=== PATIENT | male | born 1965 | race Caucasian/White ===

== ENCOUNTER 2021-03-01 13:38 | Inpatient (IN) ==
--- NOTE | 2021-03-01 13:56 | Emergency Department Note ---
Lower Extremity Injury HPI <Clarence Kwan PA-C - Last Filed: 03/01/21 18:31> General Chief Complaint: Extremity Injury, Lower Stated Complaint: dislocated 5th toe Time Seen by Provider: 03/01/21 13:40 Source: other Mode of arrival: wheelchair Limitations: language barrier and physical limitation History of Present Illness HPI Narrative: Narrative: Shahid is a 55-year-old male who comes from [facility] for evaluation of a possible left fifth toe dislocation. 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 Report is that he might have kicked a door or wall but there is no timeframe for when this injury could have occurred. Assistance from [facility] are not able to give much information regarding this patient but on examination it does appear that the patient is suffering from chronic wounds of the feet bilaterally that include grade 2 pressure ulcers as well as significant skin breakdown and possible localized infection of the anterior digital webspace between toes 4 and 5 the left foot. Shahid is not able to provide history on his own but does not toxically ill in his appearance and is afebrile in triage. The patient does have intact distal pulses at +2 over the dorsalis pedis and posterior tibialis of his left lower extremity. Right lower extremity is similar in appearance. There is a noted deformity of the left fifth toe so we will perform x-rays of this to evaluate for acute fra ctures or dislocations. Related Data Home Medications Medication Instructions Recorded Confirmed acetaminophen 500 mg PO Q6H PRN 03/01/21 03/01/21 amantadine HCl 100 mg PO TID 03/01/21 03/01/21 benzocaine 1 applic MUCOUS MEMBRANE QID PRN 03/01/21 03/01/21 bisacodyl 10 mg NC QDAY PRN 03/01/21 03/01/21 cholecalciferol (vitamin D3) 125 mcg PO WEEKLY 03/01/21 03/01/21 deutetrabenazine 24 mg PO BID 03/01/21 03/01/21 folic acid 1 mg PO QAM 03/01/21 03/01/21 gabapentin 300 mg PO TID 03/01/21 03/01/21 loratadine [Allergy Relief 10 mg PO QAM 03/01/21 03/01/21 (loratadine)] magnesium hydroxide [Milk of 15 ml PO BID 03/01/21 03/01/21 Magnesia] magnesium hydroxide [Milk of 30 ml PO Q72H PRN 03/01/21 03/01/21 Magnesia] melatonin 3 mg PO HS PRN 03/01/21 03/01/21 meloxicam 15 mg PO QAM 03/01/21 03/01/21 methocarbamol 750 mg PO TID 03/01/21 03/01/21 [id number] K 1 tab PO QAM 03/01/21 03/01/21 [Adults Multivitamin] oxycodone 5 mg PO QPM 03/01/21 03/01/21 quetiapine 25 mg PO BID 03/01/21 03/01/21 sertraline 50 mg PO QDAY 03/01/21 03/01/21 sodium phosphates [Fleet Enema] 118 ml NC DAILY PRN 03/01/21 03/01/21 thiamine HCl (vitamin B1) 100 mg PO QAM 03/01/21 03/01/21 Allergies Allergy/AdvReac Type Severity Reaction Status Date / Time No Known Drug Allergies Allergy Verified 03/01/21 13:42 Review of Systems <Clarence Kwan PA-C - Last Filed: 03/01/21 18:31> ROS ROS Narrative: Narrative: All systems ED: reviewed and negative except as stated. PFSH <Clarence Kwan PA-C - Last Filed: 03/01/21 18:31> Narrative Patient History Narrative: Narrative: Medical/Surgical/Family History All Active Problems (Updated 03/01/21 @ 19:20 by Dario Stark MD) Macrocytic anemia (Acute) Giovanna's chorea (Acute) Open fracture dislocation of interphalangeal joint of toe of left foot (Acute) Acute hypernatremia (Acute) Social History Smoking Status: Former smoker Exam <EDWARD Witt Last Filed: 03/01/21 18:31> Narrative Narrative: Narrative: General Limitations: language barrier and physical limitation General appearance: Present alert and anxious Head Head: Present atraumatic, normocephalic and normal inspection Eye Eye: Present normal appearance, PERRL and EOMI ENT ENT: Present normal exam, normal oropharynx, mucous membranes moist and mucous membranes dry Neck Neck: Present normal inspection, full ROM and trachea midline Chest Chest: Present normal inspection and symmetric chest wall rise Respiratory Respiratory: Present normal lung sounds bilaterally Cardiovascular Cardiovascular: Present regular rate and normal rhythm Extremities Extremities: Present full ROM, normal capillary refill and other Expanded Lower Extremity Foot/toe: Present other (Patient has good distal pusles at +2 bilaterally over the DP and PT. Noted areas of skin break down and grade 2 ulcerations over the base of the great left toe and interdigital webspace of the 4th and 5th toes.) Neurovascular/Tendon: Present normal capillary refill Neurological Neurological: Present alert Skin Skin: Present warm (WNL), dry and normal color Course <Clarence Kwan PA-C - Last Filed: 03/01/21 18:31> Course Course Narrative: A plain film that was dictated earlier today did report dislocation of the fifth PIP. The patient was kicking things in triage so we will order a new set of plain films to further evaluate the patient's left foot for any possible fractures. 1406: Review of the patients plain film x-rays does reveal a lateral dislocation of the 5th distal phalange. This is a possible fracture line at the proximal phalange so we will await a formal dictation from radiology before we reduce the dislocation. 1422: The patient does see Dr. Minor for wound care follow up. 1439: A digital block was performed on the patient's left fifth toe and there was an attempt to reduce the dislocation however upon further inspection I did notice that the patient's area of skin breakdown is actually an open wound with visibility into the joint and flexor tendon. I now have concern for osteomyelitis and necrosis of the toe. A post reduction film was taken but the distal phalange is still displaced and there is an obvious transverse fracture of the patients proximal phalange that was noted by the radiologist in the initial plain film. Patient does not have any sensation to the area and did not respond in pain when we were examining the toe. I did talk to Dr. Lopez about this patient. We will consult podiatry as this is likely a toe that will have to be evaluated for amputation. IV placed. Labs and cultures have been drawn. 1 gm Ancef ordered. I spoke with software manager Dr. Hickey regarding this patient. He is going to come to the floor to see him to evaluate his open fracture dislocation. 1459: Plan will be to admit to the hospitalist with podiatry consulting as there is a plan to amputate the patient's left fifth toe. Patient was reported by staff climate scientist as being hypoxic so he was placed on 2 L of oxygen by nasal cannula and readjusted in the bed and he is now saturating at 94% on reexamination. A portable chest x-ray has been ordered for further evaluation. The patient does have hydrocodone on his updated medical list but he has not had a dose today. His hypoxia is unlikely to be opiod induced and the patient does not have a documented history of sleep apnea but he does snore in the room when he's sleeping. Vital Signs Vital signs: Vital Signs Temperature 97.7 F 03/01/21 13:39 Pulse Rate 80 03/01/21 13:39 Respiratory Rate 16 03/01/21 13:39 Blood Pressure 130/71 03/01/21 13:39 Pulse Oximetry (%) 96 03/01/21 13:39 Temperature 98.5 F 03/02/21 03:19 Pulse Rate 83 03/02/21 03:19 Respiratory Rate 12 03/02/21 03:19 Blood Pressure 127/73 03/02/21 03:19 Pulse Oximetry (%) 95 03/02/21 03:19 <Jose Manuel Lopez MD - Last Filed: 03/02/21 07:14> Vital Signs Vital signs: Vital Signs Temperature 97.7 F 03/01/21 13:39 Pulse Rate 80 03/01/21 13:39 Respiratory Rate 16 03/01/21 13:39 Blood Pressure 130/71 03/01/21 13:39 Pulse Oximetry (%) 96 03/01/21 13:39 Temperature 98.5 F 03/02/21 03:19 Pulse Rate 83 03/02/21 03:19 Respiratory Rate 12 03/02/21 03:19 Blood Pressure 127/73 03/02/21 03:19 Pulse Oximetry (%) 95 03/02/21 03:19 MDM <Clarence Kwan PA-C - Last Filed: 03/01/21 18:31> MDM Narrative Medical decision making narrative: Narrative: 55-year-old male with history of Giovanna's rachael and evidence of chronic wounds of the feet bilaterally presented to the emergency department with concern for left fifth toe dislocation. On further examination the patient has a open fracture of the fifth proximal phalange and dislocation of the fifth distal phalange. Patient is afebrile and is not flagging for sepsis. Patient does have mild elevated white blood cell count of 13.9 thousand without left shift. Patient also has hypernatremia with sodium of 150. IV fluid was started to correct this. There was an attempt at reducing the patient's fracture and dislocation with minimal improvement. Dr. Hickey with podiatry was consulted who saw him on the floor. Patient became hypoxic with oxygen saturations dipping into the 70s but then ret urned to normal baseline of mid 90 he was placed on 2 L by nasal cannula. Chest x-ray was negative for acute disease according to the radiologist. Given that the patient does have a history of Giovanna's rachael and a newly discovered open fracture dislocation of his left fifth toe we will discuss hospitalization with podiatry consulting. 1826: I spoke with the hospitalist regarding this patient who is going to see him on the floor of the ER for admission due to hyponatremia and open fracture dislocation of the left fifth toe. Lactate and procalcitonin have been ordered to the patient's work-up as well as a wound culture with Gram stain. Patient was discussed with Dr. Lopez. Assessment: Open fracture dislocation of the left fifth phalange. Hyponatremia. Treatment: In the emergency department the patient was given 1 L of normal saline for elevated sodium level and a software manager consult due to his open fracture dislocation. 1 gm Ancef was also given for prophylaxis against infe ction prior to blood cultures being drawn. Hospital admission. Lab Data Result diagrams: 03/01/21 14:49 03/01/21 14:49 Labs: Lab Results 03/01/21 03/01/21 03/01/21 Range/Units 14:49 14:49 14:49 WBC 13.9 H (4.5-11.0) K/mcL RBC 4.08 L (4.50-5.90) M/mcL Hgb 12.5 L (13.5-16.5) g/dL Hct 41.2 (41.0-55.0) % MCV 101.0 H (80.0-100.0) fL MCH 30.6 (26.0-34.0) pg MCHC 30.3 L (31.0-36.0) g/dL RDW 14.0 (11.5-14.5) % Plt Count 368 (140-440) K/mcL MPV 11.0 H (7.4-10.4) fL Neut % (Auto) 77.2 (38.0-78.0) % Lymph % (Auto) 11.1 L (15.0-49.0) % [place] % (Auto) 8.1 (1.0-12.0) % Eos % (Auto) 3.0 (0.0-7.0) % Baso % (Auto) 0.6 (0.0-2.0) % Lymph # (Auto) 1.54 (1.50-4.80) K/mcL [place] # (Auto) 1.12 H (0.10-0.90) K/mcL Eos # (Auto) 0.42 (0.00-0.70) K/mcL Baso # (Auto) 0.09 (0.00-0.20) K/mcL Absolute Neutrophils 10.73 H (1.80-8.00) K/mcL VBG Lactic Acid (0.5-2.0) mmol/L Sodium 150 H (133-145) mmol/L Potassium 3.7 (3.3-5.1) mmol/L Chloride 113 H (96-108) mmol/L Carbon Dioxide 22 (22-30) mmol/L Anion Gap 15.0 (8.0-16.0) BUN 22 H (6-20) mg/dL Creatinine 0.9 (0.7-1.2) mg/dL GFR Calculation 95 Glucose 83 (70-105) mg/dL Calcium 9.7 (8.6-10.4) mg/dL Total Bilirubin 0.6 (0.1-1.0) mg/dL AST 26 (<40) U/L ALT 19 (<40) U/L Alkaline Phosphatase 97 (39-117) U/L Total Protein 7.8 (5.9-8.4) gm/dL Albumin 3.9 (3.2-5.2) gm/dL Globulin 3.9 H (2.2-3.7) gm/dL Albumin/Globulin Ratio 1.0 (1.0-2.3) Procalcitonin 0.10 H (<0.10) ng/mL 03/01/21 Range/Units 14:49 WBC (4.5-11.0) K/mcL RBC (4.50-5.90) M/mcL Hgb (13.5-16.5) g/dL Hct (41.0-55.0) % MCV (80.0-100.0) fL MCH (26.0-34.0) pg MCHC (31.0-36.0) g/dL RDW (11.5-14.5) % Plt Count (140-440) K/mcL MPV (7.4-10.4) fL Neut % (Auto) (38.0-78.0) % Lymph % (Auto) (15.0-49.0) % [place] % (Auto) (1.0-12.0) % Eos % (Auto) (0.0-7.0) % Baso % (Auto) (0.0-2.0) % Lymph # (Auto) (1.50-4.80) K/mcL [place] # (Auto) (0.10-0.90) K/mcL Eos # (Auto) (0.00-0.70) K/mcL Baso # (Auto) (0.00-0.20) K/mcL Absolute Neutrophils (1.80-8.00) K/mcL VBG Lactic Acid 0.9 (0.5-2.0) mmol/L Sodium (133-145) mmol/L Potassium (3.3-5.1) mmol/L Chloride (96-108) mmol/L Carbon Dioxide (22-30) mmol/L Anion Gap (8.0-16.0) BUN (6-20) mg/dL Creatinine (0.7-1.2) mg/dL GFR Calculation Glucose (70-105) mg/dL Calcium (8.6-10.4) mg/dL Total Bilirubin (0.1-1.0) mg/dL AST (<40) U/L ALT (<40) U/L Alkaline Phosphatase (39-117) U/L Total Protein (5.9-8.4) gm/dL Albumin (3.2-5.2) gm/dL Globulin (2.2-3.7) gm/dL Albumin/Globulin Ratio (1.0-2.3) Procalcitonin (<0.10) ng/mL ED POC Tests ED POC Tests: ELIZABETH - SARS Antigen Negative <Jose Manuel Lopez MD - Last Filed: 03/02/21 07:14> [facility] Narrative Medical decision making narrative: Patient seen and evaluated by me. Is a compound fracture dislocation of the fifth toe on the right side this is an open wound age unknown. Patient's Estill's chorea caused him to have spastic movements where he supposedly kicked his toe against a counter. Patient sodium is 150. Patient was evaluated by podiatry for the compound open fracture of his fifth toe and will be admitted to internal medicine to address his hypernatremia. I reviewed right medical record and agree with assessment and plan. Medical Records Medical records reviewed: Yes I reviewed the patient's medical records. Lab Data Lab results reviewed: Yes I reviewed the patient's lab results. Labs: Lab Results 03/01/21 03/01/21 03/01/21 Range/Units 14:49 14:49 14:49 WBC 13.9 H (4.5-11.0) K/mcL RBC 4.08 L (4.50-5.90) M/mcL Hgb 12.5 L (13.5-16.5) g/dL Hct 41.2 (41.0-55.0) % MCV 101.0 H (80.0-100.0) fL MCH 30.6 (26.0-34.0) pg MCHC 30.3 L (31.0-36.0) g/dL RDW 14.0 (11.5-14.5) % Plt Count 368 (140-440) K/mcL MPV 11.0 H (7.4-10.4) fL Neut % (Auto) 77.2 (38.0-78.0) % Lymph % (Auto) 11.1 L (15.0-49.0) % [place] % (Auto) 8.1 (1.0-12.0) % Eos % (Auto) 3.0 (0.0-7.0) % Baso % (Auto) 0.6 (0.0-2.0) % Lymph # (Auto) 1.54 (1.50-4.80) K/mcL [place] # (Auto) 1.12 H (0.10-0.90) K/mcL Eos # (Auto) 0.42 (0.00-0.70) K/mcL Baso # (Auto) 0.09 (0.00-0.20) K/mcL Absolute Neutrophils 10.73 H (1.80-8.00) K/mcL VBG Lactic Acid (0.5-2.0) mmol/L Sodium 150 H (133-145) mmol/L Potassium 3.7 (3.3-5.1) mmol/L Chloride 113 H (96-108) mmol/L Carbon Dioxide 22 (22-30) mmol/L Anion Gap 15.0 (8.0-16.0) BUN 22 H (6-20) mg/dL Creatinine 0.9 (0.7-1.2) mg/dL GFR Calculation 95 Glucose 83 (70-105) mg/dL Calcium 9.7 (8.6-10.4) mg/dL Total Bilirubin 0.6 (0.1-1.0) mg/dL AST 26 (<40) U/L ALT 19 (<40) U/L Alkaline Phosphatase 97 (39-117) U/L Total Protein 7.8 (5.9-8.4) gm/dL Albumin 3.9 (3.2-5.2) gm/dL Globulin 3.9 H (2.2-3.7) gm/dL Albumin/Globulin Ratio 1.0 (1.0-2.3) Procalcitonin 0.10 H (<0.10) ng/mL 03/01/21 Range/Units 14:49 WBC (4.5-11.0) K/mcL RBC (4.50-5.90) M/mcL Hgb (13.5-16.5) g/dL Hct (41.0-55.0) % MCV (80.0-100.0) fL MCH (26.0-34.0) pg MCHC (31.0-36.0) g/dL RDW (11.5-14.5) % Plt Count (140-440) K/mcL MPV (7.4-10.4) fL Neut % (Auto) (38.0-78.0) % Lymph % (Auto) (15.0-49.0) % [place] % (Auto) (1.0-12.0) % Eos % (Auto) (0.0-7.0) % Baso % (Auto) (0.0-2.0) % Lymph # (Auto) (1.50-4.80) K/mcL [place] # (Auto) (0.10-0.90) K/mcL Eos # (Auto) (0.00-0.70) K/mcL Baso # (Auto) (0.00-0.20) K/mcL Absolute Neutrophils (1.80-8.00) K/mcL VBG Lactic Acid 0.9 (0.5-2.0) mmol/L Sodium (133-145) mmol/L Potassium (3.3-5.1) mmol/L Chloride (96-108) mmol/L Carbon Dioxide (22-30) mmol/L Anion Gap (8.0-16.0) BUN (6-20) mg/dL Creatinine (0.7-1.2) mg/dL GFR Calculation Glucose (70-105) mg/dL Calcium (8.6-10.4) mg/dL Total Bilirubin (0.1-1.0) mg/dL AST (<40) U/L ALT (<40) U/L Alkaline Phosphatase (39-117) U/L Total Protein (5.9-8.4) gm/dL Albumin (3.2-5.2) gm/dL Globulin (2.2-3.7) gm/dL Albumin/Globulin Ratio (1.0-2.3) Procalcitonin (<0.10) ng/mL ED POC Tests ED POC Tests: ELIZABETH - SARS Antigen Negative Pulse Oximetry Data Pulse Ox %: 95 Interpretation: Percent on room air within normal limits for this patient Discharge Plan Patient/Caregiver Discharge Instructions Pt seen by LEVER OPERATOR/PA only: Yes Clinical Impression: Acute hypernatremia Open fracture dislocation of interphalangeal joint of toe of left foot Qualifiers: Encounter type: initial encounter Qualified Code(s): S92.912B - Unspecified fracture of left toe(s), initial encounter for open fracture Activity: non-weight bearing Patient Disposition: Xfer As Inpt ([facility]) Condition: Good Discharge Date/Time: 03/01/21 20:19
--- NOTE | 2021-03-01 14:29 | XRay Report ---
HISTORY: Dislocated left fifth toe FINDINGS: There is a nondisplaced transverse fracture at the base of the shaft of the proximal phalanx in the fifth toe. At the PIP joint the distal end of the fifth toe is dislocated in a lateral direction. There is proximal retraction of the distal end of the toe. 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 Overlying soft tissues are swollen. The metatarsal phalangeal joint space is normal. The remainder of the foot is normal with no other fracture or bone injury. There is a small accessory ossicle seen lateral view along the proximal superior border of the navicular. IMPRESSION: Fracture proximal phalanx of the fifth toe Dislocated PIP joint of the fifth toe Interpreted and Authenticated by: Vishal Bearden 03/01/21
[2021-03-01] MEDS ORDERED: ceFAZolin 1 GM VIAL IV ONE (14:37)
--- NOTE | 2021-03-01 14:40 | XRay Report ---
HISTORY: Postreduction of dislocated PIP joint in the fifth toe FINDINGS: There is still lateral dislocation at the PIP joint. The proximal retraction of the middle phalanx relative to the proximal phalanx has improved. The transverse fracture the base of the proximal phalanx remains normally aligned. IMPRESSION: Incomplete reduction of the dislocated PIP joint Interpreted and Authenticated by: Vishal Bearden 03/01/21
--- NOTE | 2021-03-01 15:09 | Emergency Department Note ---
Lower Extremity Injury HPI General Chief Complaint: Extremity Injury, Lower Stated Complaint: dislocated 5th toe Time Seen by Provider: 03/01/21 13:40 Source: other Mode of arrival: wheelchair Limitations: language barrier and physical limitation History of Present Illness HPI Narrative: Narrative: Related Data Home Medications Medication Instructions Recorded Confirmed acetaminophen 500 mg PO Q6H PRN 03/01/21 03/01/21 Allergies Allergy/AdvReac Type Severity Reaction Status Date / Time No Known Drug Allergies Allergy Verified 03/01/21 13:42 Review of Systems ROS ROS Narrative: Narrative: PFSH Narrative Patient History Narrative: Narrative: Social History Smoking Status: Former smoker Exam Narrative Narrative: Narrative: General Limitations: language barrier and physical limitation Course Vital Signs Vital signs: Vital Signs Temperature 97.7 F 03/01/21 13:39 Pulse Rate 80 03/01/21 13:39 Respiratory Rate 16 03/01/21 13:39 Blood Pressure 130/71 03/01/21 13:39 Pulse Oximetry (%) 96 03/01/21 13:39 Temperature 97.7 F 03/01/21 13:39 Pulse Rate 89 03/01/21 14:52 Respiratory Rate 16 03/01/21 13:39 Blood Pressure 143/75 03/01/21 14:52 Pulse Oximetry (%) 95 03/01/21 14:52 MDM MDM Narrative Medical decision making narrative: Narrative: Patient seen and examine Open fracture dislocation of Left fifth toe, age unknwon. Podiatry consult IV antibiotics Wound cleaned and dressed. Await Podiatry recommendations Discharge Plan Patient/Caregiver Discharge Instructions Condition: Fair Prescriptions: No Action acetaminophen 500 mg Tablet 500 mg PO Q6H PRN (Reason: Pain) RF: 0
--- NOTE | 2021-03-01 15:34 | XRay Report ---
HISTORY: Hypoxia FINDINGS: The lungs are clear and normally expanded. The heart size and pulmonary vasculature are normal. Right diaphragm is mildly elevated. This is a chronic finding of undetermined etiology. The heart size, pulmonary vasculature, mediastinum and jennifer are normal. Above the distal of the left clavicle there is a 1 cm calcification which could be a spur or an old ununited fracture fragment. There has been no change since 07/24/11. IMPRESSION: No acute abnormality Interpreted and Authenticated by: Vishal Bearden 03/01/21
[2021-03-01 15:40] LABS: Basophils # (Auto) 0.09 K/mcL (0.00-0.20); Basophils % (Auto) 0.6 % (0.0-2.0); Eosinophils # (Auto) 0.42 K/mcL (0.00-0.70); Hematocrit 41.2 % (41.0-55.0); Hemoglobin 12.5 g/dL (13.5-16.5); Lymphocytes # (Auto) 1.54 K/mcL (1.50-4.80); Lymphocytes % (Auto) 11.1 % (15.0-49.0); Mean Corpuscular HGB Conc 30.3 g/dL (31.0-36.0); Monocytes # (Auto) 1.12 K/mcL (0.10-0.90); Monocytes % (Auto) 8.1 % (1.0-12.0); Neutrophils % (Auto) 77.2 % (38.0-78.0); Platelet Count 368 K/mcL (140-440); RBC 4.08 M/mcL (4.50-5.90); WBC 13.9 K/mcL (4.5-11.0)
[2021-03-01 15:57] LABS: ALT/SGPT 19 U/L (<40); AST/SGOT 26 U/L (<40); Albumin 3.9 gm/dL (3.2-5.2); Alkaline Phosphatase 97 U/L (39-117); Bilirubin,Total 0.6 mg/dL (0.1-1.0); Blood Urea Nitrogen 22 mg/dL (6-20); Calcium 9.7 mg/dL (8.6-10.4); Carbon Dioxide 22 mmol/L (22-30); Chloride 113 mmol/L (96-108); Globulin 3.9 gm/dL (2.2-3.7); Glomerular Filtration Rate 95; Glucose 83 mg/dL (70-105)
[2021-03-01] MEDS ORDERED: 0.9 % SODIUM CHLORIDE 1,000 ML IV ONE (16:06)
[2021-03-01] MEDS ORDERED: DEXTROSE 5%-1/2NS 1,000 ML IV SCH (19:15)
--- NOTE | 2021-03-01 19:20 | Internal Med History&Physical ---
HPI History of Present Illness Patient information: Note initiated : 03/01/21 at 7:15 pm Service Date, if different from initiated Date: [] Patient: Jose Manuel Perkins a 55 y/o M admitted on for dislocated 5th toe. Chief Complaint: [open fracture and dislocation of the left 5th toe; hypernatremia] History of present illness: Mr. 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 There is no prior similar episode. Patient was being sent by correction staff to our ED after he was found to have a open fractures and PIP joint dislocations of the left fifth toes. Small first, labs significant for mild leukocytosis with WBC 13.8, hospitalist hyponatremia with sodium level 150 with a baseline 135 1 years ago. Review of Systems Review of systems: Unable to obtain because patient is nonverbal PFSH PFSH All Active Problems (Updated 03/01/21 @ 19:20 by Dario Stark MD) Macrocytic anemia (Acute) Giovanna's chorea (Acute) Open fracture dislocation of interphalangeal joint of toe of left foot (Acute) Acute hypernatremia (Acute) MEDS/ALLERGIES Home Medications and Allergies Home Medications Medication Instructions Recorded Confirmed Type acetaminophen 500 mg PO Q6H PRN 03/01/21 03/01/21 History Allergies Allergy/AdvReac Type Severity Reaction Status Date / Time No Known Drug Allergies Allergy Verified 03/01/21 13:42 EXAM Constitutional Vitals: Temp Pulse Resp BP Pulse Ox 36.5 C 86 16 97/57 100 03/01/21 13:39 03/01/21 19:07 03/01/21 13:39 03/01/21 18:46 03/01/21 19:07 General appearance: cooperative and no acute distress Exam: Uncontrollable jerking of all 4 extremities. Head Head exam: Present atraumatic and normocephalic Eye Eye exam: Present EOMI and PERRL ENT ENT exam: Present mucous membranes moist, normal exam and normal external ear exam Neck Neck exam: Present normal inspection; Absent lymphadenopathy, tenderness and thyromegaly Respiratory Respiratory exam: Absent accessory muscle use, respiratory distress and wheezes Cardiovascular Cardiovascular exam: Present normal rate and rhythm; Absent JVD GI/Abdominal GI/Abdominal exam: Present normal bowel sounds and soft; Absent organomegaly and tenderness Rectal Rectal exam: Present deferred Extremities Exam Extremities exam: Present full ROM and normal capillary refill; Absent tenderness Additional comments: Left fourth and fifth toes wrapped in wound dressings. Neurological Exam Neurological exam: Present alert and CN II-XII intact; Absent motor sensory deficit Additional comments: Orientation cannot be assessed because patient is nonverbal Psychiatric Psychiatric exam: Absent anxious and depressed Additional comments: Unable to assess because patient is nonverbal Skin Skin exam: Present dry and intact DATA Data Completed and Pending Labs: Labs from last 24 hours 03/01/21 03/01/21 03/01/21 14:49 14:49 14:49 WBC RBC Hgb Hct MCV MCH MCHC RDW Plt Count MPV Neut % (Auto) Lymph % (Auto) [place] % (Auto) Eos % (Auto) Baso % (Auto) Lymph # (Auto) [place] # (Auto) Eos # (Auto) Baso # (Auto) Absolute Neutrophils VBG Lactic Acid 0.9 Sodium 150 H Potassium 3.7 Chloride 113 H Carbon Dioxide 22 Anion Gap 15.0 BUN 22 H Creatinine 0.9 GFR Calculation 95 Glucose 83 Calcium 9.7 Total Bilirubin 0.6 AST 26 ALT 19 Alkaline Phosphatase 97 Total Protein 7.8 Albumin 3.9 Globulin 3.9 H Albumin/Globulin Ratio 1.0 Procalcitonin 0.10 H 03/01/21 14:49 WBC 13.9 H RBC 4.08 L Hgb 12.5 L Hct 41.2 MCV 101.0 H MCH 30.6 MCHC 30.3 L RDW 14.0 Plt Count 368 MPV 11.0 H Neut % (Auto) 77.2 Lymph % (Auto) 11.1 L [place] % (Auto) 8.1 Eos % (Auto) 3.0 Baso % (Auto) 0.6 Lymph # (Auto) 1.54 [place] # (Auto) 1.12 H Eos # (Auto) 0.42 Baso # (Auto) 0.09 Absolute Neutrophils 10.73 H VBG Lactic Acid Sodium Potassium Chloride Carbon Dioxide Anion Gap BUN Creatinine GFR Calculation Glucose Calcium Total Bilirubin AST ALT Alkaline Phosphatase Total Protein Albumin Globulin Albumin/Globulin Ratio Procalcitonin A/P Assessment and plan (1) Open fracture dislocation of interphalangeal joint of toe of left foot: Status: Acute Qualifiers: Encounter type: initial encounter Qualified Code(s): S92.912B - Unspecified fracture of left toe(s), initial encounter for open fracture (2) Acute hypernatremia: Status: Acute (3) Giovanna's chorea: Status: Acute (4) Macrocytic anemia: Status: Acute Narrative A/P Narrative: 1. Left fifth toe open fracture and PIP joint dislocation: Admit to [facility] surg telemetry Orthopedic surgeon consulted, recs. 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 Macrocytic anemia: cbc w/ auto diff in the AM to trend H/H; transfuse pRBC if hemoglobin <7.0, active bleeding, or symptomatic Iron panel Folate level Vitamin B12 level 4. Acute hypernatremia: s/p 1L NS bolus given in the ED To be followed by D5W 1/2 NS @55cc/hr Repeat CMP in the AM to trend serum sodium level Consult nephrology, recs. appreciated Time Spent With Patient Time: Total time spent is greater than 50% in coordination of care (as documented) at patient's floor/unit and/or counseling patient: Total time spent with greater than 50% in coordination of care (as documented) at patient's floor/unit and/or counseling patient:: Greater than 35 minutes
[2021-03-01] MEDS ORDERED: ACETAMINOPHEN 500 MG TABLET PO PRN (20:28)
[2021-03-01] MEDS ORDERED: ACETAMINOPHEN 325 MG TABLET PO PRN (20:28)
[2021-03-01] MEDS ORDERED: morphine 4 MG/ML VIAL IV PRN (20:28)
[2021-03-01] MEDS ORDERED: ONDANSETRON 4 MG/2 ML VIAL IV PRN (20:28)
[2021-03-01 22:15] LABS: Iron 27 ug/dL (61-157); TIBC Calculation 183 ug/dl (228-428); Transferrin % Saturation 15 % (20-50)
[2021-03-01] MEDS: 0.9 % SODIUM CHLORIDE 10 ML SYRINGE IV SCH (22:17)
[2021-03-01] MEDS: PIPERACILLIN SODIUM/TAZOBACTAM 3.375 GM in DEXTROSE 5% IN WATER 50 ML IV SCH (22:17)
[2021-03-01] MEDS: DOCUSATE SODIUM 100 MG CAPSULE PO SCH (22:17)
[2021-03-01] MEDS: SENNOSIDES 1 TABLET PO SCH (22:17)
[2021-03-01] MEDS: DEXTROSE 5%-1/2NS 1,000 ML IV SCH (23:02)
[2021-03-02] MEDS: oxyCODONE HCL 5 MG TABLET PO PRN ×2 (02:13→07:41)
[2021-03-02] MEDS: IBUPROFEN 600 MG TABLET PO PRN ×2 (02:13→07:41)
[2021-03-02] MEDS: 0.9 % SODIUM CHLORIDE 10 ML SYRINGE IV SCH ×3 (05:24→22:13)
[2021-03-02] MEDS: PIPERACILLIN SODIUM/TAZOBACTAM 3.375 GM in DEXTROSE 5% IN WATER 50 ML IV SCH ×3 (05:24→22:14)
--- NOTE | 2021-03-02 06:16 | Nephrology Consult Note ---
HPI Data of Consult Patient: new to practice Consult date: 03/02/21 Requesting physician: Dario Stark Primary Care Provider: Unknown Unknown Consult Narrative Patient Information: Note initiated : 03/02/21 at 6:12 am Patient: Jose Manuel Perkins 55 y/o M admitted on 03/01/21 for dislocated 5th toe. Chief Complaint: Foot pain Jose Manuel Perkins is a 55-year-old male with a history of dementia and Giovanna's chorea sent to [facility] ED from [facility] for evaluation of a possible traumatic left fifth toe dislocation. The patient was not able to provide history. In ED, his work was significant for open fracture dislocation of the left fifth phalanx and hypernatremia. He was admitted on 03/01/21. Nephrology consultation was requested for hypernatremia. He is awake, alert and responds appropriately. He has 2 cups of water on the bedside table and sipping. He denies feeling thirsty. Chief complaint: Foot pain Reason for consult: Hypernatremia cc:: CC: Dario Stark MD Constitutional Constitutional: Present weakness; Absent fever(s) Cardiovascular Cardiovascular: Absent chest pain and palpatations Respiratory Respiratory: Absent cough and dyspnea Gastrointestinal Gastrointestinal: Absent nausea and vomiting Integumentary Integumentary: Present wounds; Absent rash Neurological Neurological: Present weakness Psychiatric Psychiatric: Absent anxiety and panic attacks Hematologic/Lymphatic Hematologic/Lymphatic: Absent easy bleeding Allergic/Immunologic Allergic/Immunologic: Absent tongue swelling and uticaria PFSH PFSH All Active Problems (Updated 03/01/21 @ 19:20 by Dario Stark MD) Macrocytic anemia (Acute) [place]'s chorea (Acute) Open fracture dislocation of interphalangeal joint of toe of left foot (Acute) Acute hypernatremia (Acute) MEDS/ALLERGIES Home Medications and Allergies Home Medications Medication Instructions Recorded Confirmed Type acetaminophen 500 mg PO Q6H PRN 03/01/21 03/01/21 History amantadine HCl 100 mg PO TID 03/01/21 03/01/21 History benzocaine 1 applic MUCOUS MEMBRANE QID PRN 03/01/21 03/01/21 History bisacodyl 10 mg IN QDAY PRN 03/01/21 03/01/21 History cholecalciferol (vitamin D3) 125 mcg PO WEEKLY 03/01/21 03/01/21 History deutetrabenazine 24 mg PO BID 03/01/21 03/01/21 History folic acid 1 mg PO QAM 03/01/21 03/01/21 History gabapentin 300 mg PO TID 03/01/21 03/01/21 History loratadine [Allergy Relief 10 mg PO QAM 03/01/21 03/01/21 History (loratadine)] magnesium hydroxide [Milk of 15 ml PO BID 03/01/21 03/01/21 History Magnesia] magnesium hydroxide [Milk of 30 ml PO Q72H PRN 03/01/21 03/01/21 History Magnesia] melatonin 3 mg PO HS PRN 03/01/21 03/01/21 History meloxicam 15 mg PO QAM 03/01/21 03/01/21 History methocarbamol 750 mg PO TID 03/01/21 03/01/21 History [id number]-FA-vit K 1 tab PO QAM 03/01/21 03/01/21 History [Adults Multivitamin] oxycodone 5 mg PO QPM 03/01/21 03/01/21 History quetiapine 25 mg PO BID 03/01/21 03/01/21 History sertraline 50 mg PO QDAY 03/01/21 03/01/21 History sodium phosphates [Fleet Enema] 118 ml IN DAILY PRN 03/01/21 03/01/21 History thiamine HCl (vitamin B1) 100 mg PO QAM 03/01/21 03/01/21 History Allergies Allergy/AdvReac Type Severity Reaction Status Date / Time No Known Drug Allergies Allergy Verified 03/01/21 13:42 Physical Examination Vital Signs Vital signs: Temp Pulse Resp BP Pulse Ox 98.5 F 83 12 127/73 95 03/02/21 03:19 03/02/21 03:19 03/02/21 03:19 03/02/21 03:19 03/02/21 03:19 General Appearance General appearance: chronically ill, fatigue and frail EENT EENT: mucous membranes moist Neck Neck: no JVD Respiratory Respiratory: clear Cardiovascular Cardiology: no edema, regular rate and regular rhythm Gastrointestinal Gastrointestinal: no tenderness Integumentary Integumentary: ulcer Musculoskeletal Musculoskeletal: deformities Psychiatric Psychiatric: mood/affect appropriate and cooperative Additional Exam Additional exam: Awake, alert, responds appropriately. Results Lab Results Result Diagrams: 03/02/21 06:56 03/02/21 06:56 Lab results: Most recent lab results Calcium 9.7 mg/dL (8.6-10.4) 03/01/21 14:49 A/P Assessment and plan (1) Acute hypernatremia: Assessment and plan: Jose Manuel Perkins is a 55-year-old male with a history of dementia and [place]asset's chorea sent to [facility] ED from [facility] for evaluation of a possible traumatic left fifth toe dislocation. The patient was not able to provide history. In ED, his work was significant for open fracture dislocation of the left fifth phalanx and hypernatremia. He was admitted on 03/01/21. Nephrology consultation was requested for hypernatremia. Hypernatremia with elevated BUN/creatinine consistent with dehydration due to decreased oral intake, present on arrival. Treatment: I L NS in ED followed by D5W1/2NS at 50 ml/hour. Progress: Serum sodium decreased from 150 to 146 in the past 12 hours. Urine output: 100 ml reported in the past 12 hours. Recommendations/Plan: Monitor oral intake. Nephrology will sign off. Status: Acute Time Spent With Patient Time: Total time spent is greater than 50% in coordination of care (as document ed) at patient's floor/unit and/or counseling patient:
[2021-03-02 08:19] LABS: Basophils # (Auto) 0.07 K/mcL (0.00-0.20); Basophils % (Auto) 0.6 % (0.0-2.0); Eosinophils # (Auto) 0.74 K/mcL (0.00-0.70); Eosinophils % (Auto) 6.3 % (0.0-7.0); Hematocrit 40.5 % (41.0-55.0); Lymphocytes # (Auto) 1.85 K/mcL (1.50-4.80); Lymphocytes % (Auto) 15.7 % (15.0-49.0); Mean Corpuscular HGB Conc 29.6 g/dL (31.0-36.0); Mean Platelet Volume 11.1 fL (7.4-10.4); Monocytes # (Auto) 1.05 K/mcL (0.10-0.90); Monocytes % (Auto) 8.9 % (1.0-12.0); Neutrophils % (Auto) 68.5 % (38.0-78.0); Platelet Count 359 K/mcL (140-440); RBC 4.05 M/mcL (4.50-5.90); Red Cell Distribution Width 14.1 % (11.5-14.5); WBC 11.8 K/mcL (4.5-11.0)
[2021-03-02 08:40] LABS: ALT/SGPT 17 U/L (<40); AST/SGOT 33 U/L (<40); Albumin 3.4 gm/dL (3.2-5.2); Albumin/Globulin Ratio 0.9 (1.0-2.3); Alkaline Phosphatase 98 U/L (39-117); Bilirubin,Total 0.6 mg/dL (0.1-1.0); Blood Urea Nitrogen 16 mg/dL (6-20); Calcium 9.5 mg/dL (8.6-10.4); Carbon Dioxide 23 mmol/L (22-30); Chloride 111 mmol/L (96-108); Globulin 3.7 gm/dL (2.2-3.7); Glomerular Filtration Rate 100; Glucose 81 mg/dL (70-105)
[2021-03-02] MEDS ORDERED: VITAMIN D3 5,000 UNIT CAPSULE PO SCH (09:00)
[2021-03-02] MEDS: DOCUSATE SODIUM 100 MG CAPSULE PO SCH ×2 (10:30→21:57)
[2021-03-02] MEDS ORDERED: MAGNESIUM HYDROXIDE 30 ML ORAL.SUSP PO PRN (12:09)
[2021-03-02] MEDS ORDERED: MELATONIN 3 MG TABLET PO PRN (12:09)
[2021-03-02] MEDS ORDERED: BISACODYL 10 MG SUPP.RECT PR PRN (12:09)
[2021-03-02] MEDS ORDERED: FLEETS ADULT ENEMA PR PRN (12:09)
[2021-03-02] MEDS ORDERED: BENZOCAINE 20% TOPICAL PRN (12:19)
[2021-03-02] MEDS: MELOXICAM 7.5 MG TABLET PO SCH (14:29)
[2021-03-02] MEDS: QUEtiapine 25 MG TABLET PO SCH ×2 (14:29→22:12)
[2021-03-02] MEDS: GABAPENTIN 300 MG CAPSULE PO SCH ×2 (14:29→22:12)
[2021-03-02] MEDS: DEUTETRABENAZINE 12 MG PO SCH ×2 (14:30→22:13)
--- NOTE | 2021-03-02 16:03 | Internal Med Progress Note ---
SUBJECTIVE Subjective Patient information: Note initiated : 03/02/21 at 3:59 pm Service Date, if different from initiated Date: [] Patient: Jose Manuel Perkins 55 y/o M admitted on 03/01/21 for dislocated 5th toe. Chief Complaint: [Hypernatremia; open fracture and joint dislocation of the left 5th toe] Overnight: Fall from bed with butt landed on ground when patient tried to go to bathroom at 0930 this morning. Subjective: Not obtained due to clinical situations. Constitutional Vitals: Vital Signs Temp Pulse Resp BP Pulse Ox 37.0 C 81 20 108/64 92 03/02/21 15:45 03/02/21 15:45 03/02/21 15:45 03/02/21 15:45 03/02/21 15:45 Period Temp Pulse Resp BP Sys/Orta Pulse Ox Last 24 Hr 36.3 C-37.0 C 81-100 12-20 97-150/57-115 92-100 Intake and Output 03/02/21 03/02/21 03/02/21 05:59 13:59 21:59 Intake Total 730 410 600 Output Total 101 75 Balance 629 410 525 Intake & Output: Intake & Output 03/02/21 03/02/21 03/02/21 05:59 13:59 21:59 Intake Total 730 410 600 Output Total 101 75 Balance 629 410 525 Intake: IV 50 50 Zosyn 3.375 gm In Dextrose 5% 50 50 in Water 50 ml @ 100 mls/hr IV Q8H [facility] Rx#:[id number] Oral 680 360 600 Output: Void Amount 100 75 # of times incontinent of urine 1 Other: Meal Lunch Percent of Meal Consumed 100% Feeding Ability Needs Supervision Urine Appearance Clear Urine Color Bright Yellow Dark Yellow Urine Odor Normal Strong Stool Size Large Stool Color Brown Stool Consistency Soft Formed # Bowel Movements 1 General appearance: cooperative and no acute distress Head Head exam: Present atraumatic and normocephalic Eye Eye exam: Present EOMI and PERRL ENT ENT exam: Present mucous membranes moist, normal exam and normal external ear exam Neck Neck exam: Present normal inspection; Absent lymphadenopathy, tenderness and thyromegaly Respiratory Respiratory exam: Absent accessory muscle use, respiratory distress and wheezes Cardiovascular Cardiovascular exam: Present normal rate and rhythm; Absent JVD GI/Abdominal GI/Abdominal exam: Present normal bowel sounds and soft; Absent organomegaly and tenderness Rectal Rectal exam: Present deferred Extremities Exam Extremities exam: Present full ROM, normal capillary refill and normal inspection; Absent tenderness Additional comments: Left 5th toe wrapped in wound dressing Neurological Exam Neurological exam: Present alert, CN II-XII intact and oriented X3; Absent motor sensory deficit Additional comments: Juking of all 4 extremrities Psychiatric Psychiatric exam: Present normal affect and normal mood; Absent anxious and depressed Skin Skin exam: Present dry and intact OBJ DATA Labs CBC & Chem 7: 03/02/21 06:56 03/02/21 06:56 Labs: Abnormal Lab Results 03/02/21 03/02/21 03/01/21 06:56 06:56 20:54 WBC 11.8 H RBC 4.05 L Hgb 12.0 L Hct 40.5 L MCV MCHC 29.6 L MPV 11.1 H Lymph % (Auto) [place] # (Auto) 1.05 H Eos # (Auto) 0.74 H Absolute Neutrophils 8.10 H ESR Sodium 146 H Chloride 111 H BUN Iron 27 L TIBC 183 L Transferrin % Sat 15 L C-Reactive Protein 5.50 H Globulin Albumin/Globulin Ratio 0.9 L Procalcitonin 03/01/21 03/01/21 03/01/21 20:54 14:49 14:49 WBC RBC Hgb Hct MCV MCHC MPV Lymph % (Auto) [place] # (Auto) Eos # (Auto) Absolute Neutrophils ESR 48 H Sodium 150 H Chloride 113 H BUN 22 H Iron TIBC Transferrin % Sat C-Reactive Protein Globulin 3.9 H Albumin/Globulin Ratio Procalcitonin 0.10 H 03/01/21 14:49 WBC 13.9 H RBC 4.08 L Hgb 12.5 L Hct MCV 101.0 H MCHC 30.3 L MPV 11.0 H Lymph % (Auto) 11.1 L [place] # (Auto) 1.12 H Eos # (Auto) Absolute Neutrophils 10.73 H ESR Sodium Chloride BUN Iron TIBC Transferrin % Sat C-Reactive Protein Globulin Albumin/Globulin Ratio Procalcitonin Meds: Medications Acetaminophen (Acetaminophen 325 Mg Tablet) 650 mg PO Q6HP PRN; Protocol PRN Reason: Per Pain Protocol/Fever > 101 Amantadine HCl (Amantadine Hcl 100 Mg Capsule) 100 mg PO TID CANDY Bisacodyl (Bisacodyl 10 Mg Supp.Rect) 10 mg RI QDAY PRN PRN Reason: Constipation Docusate Sodium (Docusate Sodium 100 Mg Capsule) 100 mg PO BID [facility] Last Admin: 03/02/21 10:30 Dose: Not Given Documented by: Folic Acid (Folic Acid 1 Mg Tablet) 1 mg PO QAM [facility] Gabapentin (Gabapentin 300 Mg Capsule) 300 mg PO TID [facility] Last Admin: 03/02/21 14:29 Dose: 300 mg Documented by: Dextrose/Sodium Chloride (Dextrose 5%-1/2ns Iv Solution) 1,000 mls @ 50 mls/hr IV .Q20H [facility] Last Admin: 03/01/21 23:02 Dose: 50 mls/hr Documented by: Piperacillin Sod/Tazobactam (Sod 3.375 gm/ Dextrose) 50 mls @ 100 mls/hr IV Q8H [facility]; Protocol Last Admin: 03/02/21 14:30 Dose: 100 mls/hr Documented by: Ibuprofen (Ibuprofen 600 Mg Tablet) 600 mg PO QIDP PRN; Protocol PRN Reason: Per Pain Protocol/Fever > 101 Last Admin: 03/02/21 07:41 Dose: 600 mg Documented by: Iron Carb/Multivit/[place]/Folic Acid (Multivit,Ther Iron,Ca,Fa & Min 1 Tablet) 1 tab PO DAILY [facility] Loratadine (Loratadine 10 Mg Tablet) 10 mg PO QAM [facility] Magnesium Hydroxide (Magnesium Hydroxide 30 Ml Oral.Susp) 30 ml PO Q72H PRN PRN Reason: Constipation Magnesium Hydroxide (Magnesium Hydroxide 30 Ml Oral.Susp) 15 ml PO BID [facility] Melatonin (Melatonin 3 Mg Tablet) 3 mg PO HS PRN PRN Reason: Insomnia Meloxicam (Meloxicam 7.5 Mg Tablet) 15 mg PO DAILY [facility] Last Admin: 03/02/21 14:29 Dose: 15 mg Documented by: Methocarbamol (Methocarbamol 750 Mg Tablet) 750 mg PO TID [facility] Morphine Sulfate (Morphine 4 Mg/Ml Vial) 4 mg IV Q4HP PRN; Protocol PRN Reason: Per Pain Protocol Ondansetron HCl (Ondansetron 4 Mg/2 Ml Vial) 4 mg IV Q6HP PRN PRN Reason: Nausea And Vomiting Oxycodone HCl (Oxycodone Hcl 5 Mg Tablet) 5 mg PO Q4HP PRN; Protocol PRN Reason: Per Pain Protocol Last Admin: 03/02/21 07:41 Dose: 5 mg Documented by: Benzocaine 20 % Gel 1 dose TOPICAL QIDP PRN PRN Reason: Mouth Pain Deutetrabenazine 12 (Mg Tablet) 2 dose PO BID [facility] Last Admin: 03/02/21 14:30 Dose: 2 dose Documented by: Quetiapine Fumarate (Quetiapine 25 Mg Tablet) 25 mg PO BID [facility] Last Admin: 03/02/21 14:29 Dose: 25 mg Documented by: Senna (Sennosides 1 Tablet) 2 tab PO HS [facility] Last Admin: 03/01/21 22:17 Dose: 2 tab Documented by: Sertraline HCl (Sertraline 50 Mg Tablet) 50 mg PO QDAY [facility] Sodium Biphosphate/Sodium Phosphate (Fleets Adult Enema) 1 dose RI DAILYP PRN PRN Reason: Constipation Sodium Chloride (0.9 % Sodium Chloride 10 Ml Syringe) 10 ml IV Q8 [facility] Last Admin: 03/02/21 14:30 Dose: 10 ml Documented by: Thiamine HCl (Thiamine 100 Mg Tablet) 100 mg PO DAILY [facility] Vitamin D (Vitamin D3 5,000 Unit Capsule) 5,000 unit PO We@0900 [facility] Last Admin: 03/02/21 14:30 Dose: 5,000 unit Documented by: A/P Assessment and plan (1) Open fracture dislocation of interphalangeal joint of toe of left foot: Status: Acute Qualifiers: Encounter type: initial encounter Qualified Code(s): S92.912B - Unspecified fracture of left toe(s), initial encounter for open fracture (2) Acute hypernatremia: Status: Acute (3) Giovanna's chorea: Status: Acute (4) Macrocytic anemia: Status: Acute Narrative A/P Narrative: 1. Left fifth toe open fracture and PIP joint dislocation: Admit to med surg telemetry Labor Contractor consulted, recs. appreciated. he asked to schedule patient for outpatient procedure Wound culture, growing S aureus, sensitivity pending Blood culture X2, no growth to date Procalcitonin Serial lactic acid cbc w/ auto diff in the AM to trend WBC Morphine IV PRN severe pain Oxycodone PRN moderate pain Add Vancomycin Zosyn Deescalate antibiotics when culture results becomes available PT and OT evaluation and treatment 2. Giovanna's Chorea: Continue to monitor 3. Macrocytic anemia: cbc w/ auto diff in the AM to trend H/H; transfuse pRBC if hemoglobin <7.0, active bleeding, or symptomatic Iron panel Folate level Vitamin B12 level 4. Acute hypernatremia: Serum sodium level 150 at admission, today 146 Continue D5W 1/2 NS @55cc/hr Repeat CMP in the AM to trend serum sodium level Consult nephrology, recs. appreciated Time Spent With Patient Time: Total time spent is greater than 50% in coordination of care (as documented) at patient's floor/unit and/or counseling patient: Total time spent with greater than 50% in coordination of care (as documented) at patient's floor/unit and/or counseling patient:: 15 - 24 minutes QUALITY Stroke Symptom Onset Unknown: No VTE Deep Vein Thrombosis/Pulmonary Embolism Present on Admission: No
[2021-03-02] MEDS ORDERED: VANCOMYCIN PER PHARMACY IV SCH (16:13)
[2021-03-02] MEDS: AMANTADINE HCL 100 MG CAPSULE PO SCH ×2 (17:14→22:12)
[2021-03-02] MEDS: METHOCARBAMOL 750 MG TABLET PO SCH ×2 (17:14→22:12)
[2021-03-02] MEDS ORDERED: VANCOMYCIN 1,500 MG in 0.9 % SODIUM CHLORIDE 500 ML IV ONE (18:00)
[2021-03-02] MEDS ORDERED: LORazepam 1 MG TABLET PO PRN (18:41)
[2021-03-02] MEDS ORDERED: hydrOXYzine 25 MG TABLET PO PRN (18:41)
[2021-03-02] MEDS: DEXTROSE 5%-1/2NS 1,000 ML IV SCH (20:22)
[2021-03-02] MEDS ORDERED: DEUTETRABENAZINE 12 MG PO SCH (21:00)
[2021-03-02] MEDS ORDERED: oxyCODONE HCL 5 MG TABLET PO SCH (21:00)
[2021-03-02] MEDS ORDERED: QUEtiapine 25 MG TABLET PO SCH (21:00)
[2021-03-02] MEDS: MAGNESIUM HYDROXIDE 30 ML ORAL.SUSP PO SCH (21:59)
[2021-03-02] MEDS: SENNOSIDES 1 TABLET PO SCH (21:59)
[2021-03-02] MEDS: traZODone HCL 100 MG TABLET PO SCH ×2 (22:12→22:26)
[2021-03-03] MEDS: 0.9 % SODIUM CHLORIDE 10 ML SYRINGE IV SCH ×3 (05:57→20:45)
[2021-03-03] MEDS: PIPERACILLIN SODIUM/TAZOBACTAM 3.375 GM in DEXTROSE 5% IN WATER 50 ML IV SCH (05:57)
[2021-03-03 07:52] LABS: Basophils # (Auto) 0.09 K/mcL (0.00-0.20); Basophils % (Auto) 0.7 % (0.0-2.0); Eosinophils # (Auto) 0.98 K/mcL (0.00-0.70); Eosinophils % (Auto) 8.1 % (0.0-7.0); Hematocrit 39.1 % (41.0-55.0); Hemoglobin 11.6 g/dL (13.5-16.5); Lymphocytes # (Auto) 1.48 K/mcL (1.50-4.80); Lymphocytes % (Auto) 12.2 % (15.0-49.0); Mean Cell Volume 99.7 fL (80.0-100.0); Mean Corpuscular HGB Conc 29.7 g/dL (31.0-36.0); Mean Platelet Volume 11.2 fL (7.4-10.4); Monocytes # (Auto) 1.11 K/mcL (0.10-0.90); Monocytes % (Auto) 9.1 % (1.0-12.0); Neutrophils % (Auto) 69.9 % (38.0-78.0); Platelet Count 307 K/mcL (140-440); RBC 3.92 M/mcL (4.50-5.90); Red Cell Distribution Width 14.2 % (11.5-14.5); WBC 12.2 K/mcL (4.5-11.0)
[2021-03-03 08:26] LABS: ALT/SGPT 15 U/L (<40); AST/SGOT 20 U/L (<40); Albumin/Globulin Ratio 0.9 (1.0-2.3); Alkaline Phosphatase 81 U/L (39-117); Bilirubin,Total 0.3 mg/dL (0.1-1.0); Blood Urea Nitrogen 11 mg/dL (6-20); Calcium 8.8 mg/dL (8.6-10.4); Carbon Dioxide 24 mmol/L (22-30); Chloride 114 mmol/L (96-108); Globulin 3.2 gm/dL (2.2-3.7); Glomerular Filtration Rate 106; Glucose 92 mg/dL (70-105)
[2021-03-03] MEDS ORDERED: MELOXICAM 7.5 MG TABLET PO SCH (09:00)
[2021-03-03] MEDS: VANCOMYCIN 1,000 MG in 0.9 % SODIUM CHLORIDE 250 ML IV SCH ×2 (10:40→21:09)
[2021-03-03] MEDS: DEXTROSE 5%-1/2NS 1,000 ML IV SCH (11:48)
[2021-03-03] MEDS: AMANTADINE HCL 100 MG CAPSULE PO SCH ×3 (13:11→21:32)
[2021-03-03] MEDS: DOCUSATE SODIUM 100 MG CAPSULE PO SCH ×2 (13:12→21:33)
[2021-03-03] MEDS: LORATADINE 10 MG TABLET PO SCH (13:12)
[2021-03-03] MEDS: FOLIC ACID 1 MG TABLET PO SCH (13:12)
[2021-03-03] MEDS: MULTIVIT,THER IRON,CA,FA & MIN 1 TABLET PO SCH (13:14)
[2021-03-03] MEDS: MELOXICAM 7.5 MG TABLET PO SCH (13:14)
[2021-03-03] MEDS: GABAPENTIN 300 MG CAPSULE PO SCH ×3 (13:14→21:10)
[2021-03-03] MEDS: MAGNESIUM HYDROXIDE 30 ML ORAL.SUSP PO SCH ×2 (13:14→21:33)
[2021-03-03] MEDS: DEUTETRABENAZINE 12 MG PO SCH ×2 (13:15→21:09)
[2021-03-03] MEDS: QUEtiapine 25 MG TABLET PO SCH ×2 (13:15→21:12)
[2021-03-03] MEDS: METHOCARBAMOL 750 MG TABLET PO SCH ×3 (13:15→21:09)
[2021-03-03] MEDS: THIAMINE 100 MG TABLET PO SCH (13:15)
[2021-03-03] MEDS: SERTRALINE 50 MG TABLET PO SCH (13:16)
--- NOTE | 2021-03-03 13:21 | Internal Med Progress Note ---
SUBJECTIVE Subjective Patient information: Note initiated : 03/03/21 at 1:18 pm Service Date, if different from initiated Date: [] Patient: Jose Manuel Perkins 55 y/o M admitted on 03/01/21 for dislocated 5th toe. Chief Complaint: [Left fifth toe open fracture and dislocation; hypernatremia ] Overnight: Afebrile. No fall. Wound culture grew MRSA. Subjective: Not obtained due to clinical situations. Constitutional Vitals: Vital Signs Temp Pulse Resp BP Pulse Ox 36.3 C 68 12 135/77 96 03/03/21 11:28 03/03/21 11:28 03/03/21 11:28 03/03/21 11:28 03/03/21 11:28 Period Temp Pulse Resp BP Sys/Orta Pulse Ox Last 24 Hr 36.3 C-37.4 C 68-81 - 96-138/56-77 91-97 Intake and Output 03/02/21 03/03/21 03/03/21 21:59 05:59 13:59 Intake Total 1130 1825 50 Output Total 76 1 Balance 1054 1824 50 Weight 76.294 kg Intake & Output: Intake & Output 03/02/21 03/03/21 03/03/21 21:59 05:59 13:59 Intake Total 1130 1825 50 Output Total 76 1 Balance 1054 1824 50 Weight 76.294 kg Intake: IV 50 1550 50 Dextrose 5%-1/2Ns IV Solution 1 1000 ,000 ml @ 50 mls/hr IV .Q20H [facility] Rx#:[id number] Zosyn 3.375 gm In Dextrose 5% 50 50 50 in Water 50 ml @ 100 mls/hr IV Q8H [facility] Rx#:[id number] Vancomycin 1,500 mg In Sodium 500 Chloride 0.9% 500 ml @ 333.3 mls/hr IV ONCE ONE Rx#: [id number] Oral 1080 275 Output: Void Amount 75 # of times incontinent of urine 1 1 Other: Meal Dinner Percent of Meal Consumed 100% Feeding Ability Assist with Tray Set Up Urine Color Dark Yellow Bright Yellow Urine Odor Strong General appearance: cooperative and no acute distress Head Head exam: Present atraumatic and normocephalic Eye Eye exam: Present EOMI and PERRL ENT ENT exam: Present mucous membranes moist, normal exam and normal external ear exam Neck Neck exam: Present normal inspection; Absent lymphadenopathy, tenderness and thyromegaly Respiratory Respiratory exam: Absent accessory muscle use, respiratory distress and wheezes Cardiovascular Cardiovascular exam: Present normal rate and rhythm; Absent JVD GI/Abdominal GI/Abdominal exam: Present normal bowel sounds and soft; Absent organomegaly and tenderness Rectal Rectal exam: Present deferred Extremities Exam Extremities exam: Present full ROM and normal capillary refill; Absent tenderness Additional comments: Left fifth toe wrapped in wound dressing Neurological Exam Neurological exam: Present alert and CN II-XII intact; Absent motor sensory deficit and oriented X3 Psychiatric Psychiatric exam: Present normal affect and normal mood; Absent anxious and depressed Skin Skin exam: Present dry and intact OBJ DATA Labs CBC & Chem 7: 03/03/21 06:13 03/03/21 06:13 Labs: Abnormal Lab Results 03/03/21 03/03/21 03/02/21 06:13 06:13 06:56 WBC 12.2 H RBC 3.92 L Hgb 11.6 L Hct 39.1 L MCV MCHC 29.7 L MPV 11.2 H Lymph % (Auto) 12.2 L Eos % (Auto) 8.1 H Lymph # (Auto) 1.48 L [place] # (Auto) 1.11 H Eos # (Auto) 0.98 H Absolute Neutrophils 8.49 H ESR Sodium 147 H 146 H Chloride 114 H 111 H BUN Iron TIBC Transferrin % Sat C-Reactive Protein Albumin 3.0 L Globulin Albumin/Globulin Ratio 0.9 L 0.9 L Procalcitonin 03/02/21 03/01/21 03/01/21 06:56 20:54 20:54 WBC 11.8 H RBC 4.05 L Hgb 12.0 L Hct 40.5 L MCV MCHC 29.6 L MPV 11.1 H Lymph % (Auto) Eos % (Auto) Lymph # (Auto) [place] # (Auto) 1.05 H Eos # (Auto) 0.74 H Absolute Neutrophils 8.10 H ESR 48 H Sodium Chloride BUN Iron 27 L TIBC 183 L Transferrin % Sat 15 L C-Reactive Protein 5.50 H Albumin Globulin Albumin/Globulin Ratio Procalcitonin 03/01/21 03/01/21 03/01/21 14:49 14:49 14:49 WBC 13.9 H RBC 4.08 L Hgb 12.5 L Hct MCV 101.0 H MCHC 30.3 L MPV 11.0 H Lymph % (Auto) 11.1 L Eos % (Auto) Lymph # (Auto) [place] # (Auto) 1.12 H Eos # (Auto) Absolute Neutrophils 10.73 H ESR Sodium 150 H Chloride 113 H BUN 22 H Iron TIBC Transferrin % Sat C-Reactive Protein Albumin Globulin 3.9 H Albumin/Globulin Ratio Procalcitonin 0.10 H Meds: Medications Acetaminophen (Acetaminophen 325 Mg Tablet) 650 mg PO Q6HP PRN; Protocol PRN Reason: Per Pain Protocol/Fever > 101 Amantadine HCl (Amantadine Hcl 100 Mg Capsule) 100 mg PO TID [facility] Last Admin: 03/03/21 13:11 Dose: Not Given Documented by: Bisacodyl (Bisacodyl 10 Mg Supp.Rect) 10 mg RI QDAY PRN PRN Reason: Constipation Docusate Sodium (Docusate Sodium 100 Mg Capsule) 100 mg PO BID [facility] Last Admin: 03/03/21 13:12 Dose: Not Given Documented by: Folic Acid (Folic Acid 1 Mg Tablet) 1 mg PO QAM [facility] Last Admin: 03/03/21 13:12 Dose: Not Given Documented by: Gabapentin (Gabapentin 300 Mg Capsule) 300 mg PO TID [facility] Last Admin: 03/03/21 13:14 Dose: Not Given Documented by: Hydroxyzine HCl (Hydroxyzine 25 Mg Tablet) 0 mg PO Q4HP PRN PRN Reason: Anxiety/Agitation Piperacillin Sod/Tazobactam (Sod 3.375 gm/ Dextrose) 50 mls @ 100 mls/hr IV Q8H [facility]; Protocol Last Infusion: 03/03/21 06:38 Dose: Infused Documented by: Vancomycin HCl 1,000 mg/ (Sodium Chloride) 250 mls @ 250 mls/hr IV Q12H [facility] Last Admin: 03/03/21 10:40 Dose: 250 mls/hr Documented by: Dextrose/Sodium Chloride (Dextrose 5%-1/2ns Iv Solution) 1,000 mls @ 50 mls/hr IV .Q20H [facility] Last Admin: 03/03/21 11:48 Dose: 50 mls/hr Documented by: Ibuprofen (Ibuprofen 600 Mg Tablet) 600 mg PO QIDP PRN; Protocol PRN Reason: Per Pain Protocol/Fever > 101 Last Admin: 03/02/21 07:41 Dose: 600 mg Documented by: Iron Carb/Multivit/[place]/Folic Acid (Multivit,Ther Iron,Ca,Fa & Min 1 Tablet) 1 tab PO DAILY [facility] Last Admin: 03/03/21 13:14 Dose: Not Given Documented by: Loratadine (Loratadine 10 Mg Tablet) 10 mg PO QAM [facility] Last Admin: 03/03/21 13:12 Dose: Not Given Documented by: Lorazepam (Lorazepam 1 Mg Tablet) 2 mg PO Q2HP PRN PRN Reason: CIWA-A >6 or HR >100 Magnesium Hydroxide (Magnesium Hydroxide 30 Ml Oral.Susp) 30 ml PO Q72H PRN PRN Reason: Constipation Magnesium Hydroxide (Magnesium Hydroxide 30 Ml Oral.Susp) 15 ml PO BID [facility] Last Admin: 03/03/21 13:14 Dose: Not Given Documented by: Melatonin (Melatonin 3 Mg Tablet) 3 mg PO HS PRN PRN Reason: Insomnia Meloxicam (Meloxicam 7.5 Mg Tablet) 15 mg PO DAILY [facility] Last Admin: 03/03/21 13:14 Dose: Not Given Documented by: Methocarbamol (Methocarbamol 750 Mg Tablet) 750 mg PO TID [facility] Last Admin: 03/03/21 13:15 Dose: Not Given Documented by: Morphine Sulfate (Morphine 4 Mg/Ml Vial) 4 mg IV Q4HP PRN; Protocol PRN Reason: Per Pain Protocol Ondansetron HCl (Ondansetron 4 Mg/2 Ml Vial) 4 mg IV Q6HP PRN PRN Reason: Nausea And Vomiting Oxycodone HCl (Oxycodone Hcl 5 Mg Tablet) 5 mg PO Q4HP PRN; Protocol PRN Reason: Per Pain Protocol Last Admin: 03/02/21 07:41 Dose: 5 mg Documented by: Benzocaine 20 % Gel 1 dose TOPICAL QIDP PRN PRN Reason: Mouth Pain Deutetrabenazine 12 (Mg Tablet) 2 dose PO BID [facility] Last Admin: 03/03/21 13:15 Dose: Not Given Documented by: Quetiapine Fumarate (Quetiapine 25 Mg Tablet) 25 mg PO BID [facility] Last Admin: 03/03/21 13:15 Dose: Not Given Documented by: Senna (Sennosides 1 Tablet) 2 tab PO [facility] Last Admin: 03/02/21 21:59 Dose: Not Given Documented by: Sertraline HCl (Sertraline 50 Mg Tablet) 50 mg PO QDAY [facility] Last Admin: 03/03/21 13:16 Dose: Not Given Documented by: Sodium Biphosphate/Sodium Phosphate (Fleets Adult Enema) 1 dose RI DAILYP PRN PRN Reason: Constipation Sodium Chloride (0.9 % Sodium Chloride 10 Ml Syringe) 10 ml IV Q8 [facility] Last Admin: 03/03/21 05:57 Dose: 10 ml Documented by: Thiamine HCl (Thiamine 100 Mg Tablet) 100 mg PO DAILY [facility] Last Admin: 03/03/21 13:15 Dose: Not Given Documented by: Trazodone HCl (Trazodone Hcl 100 Mg Tablet) 100 mg PO HSMR [facility] Last Admin: 03/02/21 22:26 Dose: Not Given Documented by: Vancomycin HCl (Vancomycin Per Pharmacy) 1 order IV UD [facility]; Protocol Vitamin D (Vitamin D3 5,000 Unit Capsule) 5,000 unit PO We@0900 [facility] Last Admin: 03/02/21 14:30 Dose: 5,000 unit Documented by: A/P Assessment and plan (1) Open fracture dislocation of interphalangeal joint of toe of left foot: Status: Acute Qualifiers: Encounter type: initial encounter Qualified Code(s): S92.912B - Unspecified fracture of left toe(s), initial encounter for open fracture (2) Acute hypernatremia: Status: Acute (3) 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 Left fifth toe open fracture and PIP joint dislocation: Stays in med surg telemetry Breaker Layer consulted, recs. appreciated. he asked to schedule patient for outpatient procedure Wound culture, growing MRSA. 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 Macrocytic anemia: cbc w/ auto diff in the AM to trend H/H; transfuse pRBC if hemoglobin <7.0, active bleeding, or symptomatic Iron panel Folate level Vitamin B12 level 4. Acute hypernatremia: Serum sodium level 150 at admission, today 146 Continue D5W 1/2 NS @55cc/hr Repeat CMP in the AM to trend serum sodium level Consult nephrology, recs. appreciated 5. Alcohol withdrawal/Delirium tremens: CIWA protocol, measures to be provided for symptoms relief. Time Spent With Patient Time: Total time spent is greater than 50% in coordination of care (as documented) at patient's floor/unit and/or counseling patient: QUALITY Stroke Symptom Onset Unknown: No VTE Deep Vein Thrombosis/Pulmonary Embolism Present on Admission: No
[2021-03-03] MEDS ORDERED: traZODone HCL 50 MG TABLET PO PRN (16:46)
[2021-03-03] MEDS ORDERED: CHLORHEXIDINE GLUCONATE 473 ML BOTTLE TOPICAL SCH (18:15)
[2021-03-03] MEDS: MUPIROCIN OINT 2% 22GM NARES SCH (21:22)
[2021-03-03] MEDS: SENNOSIDES 1 TABLET PO SCH (21:33)
[2021-03-04] MEDS: IBUPROFEN 600 MG TABLET PO PRN (00:56)
[2021-03-04] MEDS: 0.9 % SODIUM CHLORIDE 10 ML SYRINGE IV SCH (04:54)
[2021-03-04 07:41] LABS: ALT/SGPT 11 U/L (<40); AST/SGOT 19 U/L (<40); Albumin 2.6 gm/dL (3.2-5.2); Albumin/Globulin Ratio 0.8 (1.0-2.3); Alkaline Phosphatase 88 U/L (39-117); Bilirubin,Total 0.5 mg/dL (0.1-1.0); Blood Urea Nitrogen 6 mg/dL (6-20); Calcium 8.5 mg/dL (8.6-10.4); Carbon Dioxide 23 mmol/L (22-30); Chloride 108 mmol/L (96-108); Globulin 3.3 gm/dL (2.2-3.7); Glomerular Filtration Rate 113; Glucose 77 mg/dL (70-105)
[2021-03-04 09:11] LABS: Basophils # (Auto) 0.09 K/mcL (0.00-0.20); Basophils % (Auto) 0.7 % (0.0-2.0); Eosinophils # (Auto) 0.86 K/mcL (0.00-0.70); Eosinophils % (Auto) 6.8 % (0.0-7.0); Hemoglobin 11.8 g/dL (13.5-16.5); Lymphocytes # (Auto) 1.22 K/mcL (1.50-4.80); Lymphocytes % (Auto) 9.7 % (15.0-49.0); Mean Cell Volume 98.5 fL (80.0-100.0); Mean Corpuscular HGB Conc 30.3 g/dL (31.0-36.0); Mean Platelet Volume 11.5 fL (7.4-10.4); Monocytes # (Auto) 1.07 K/mcL (0.10-0.90); Monocytes % (Auto) 8.5 % (1.0-12.0); Neutrophils % (Auto) 74.3 % (38.0-78.0); Platelet Count 276 K/mcL (140-440); RBC 3.96 M/mcL (4.50-5.90); Red Cell Distribution Width 13.9 % (11.5-14.5); WBC 12.6 K/mcL (4.5-11.0)
[2021-03-04] MEDS: QUEtiapine 25 MG TABLET PO SCH (10:07)
[2021-03-04] MEDS: SERTRALINE 50 MG TABLET PO SCH (10:07)
[2021-03-04] MEDS: LORATADINE 10 MG TABLET PO SCH (10:07)
[2021-03-04] MEDS: METHOCARBAMOL 750 MG TABLET PO SCH (10:07)
[2021-03-04] MEDS: MULTIVIT,THER IRON,CA,FA & MIN 1 TABLET PO SCH (10:07)
[2021-03-04] MEDS: THIAMINE 100 MG TABLET PO SCH (10:07)
[2021-03-04] MEDS: GABAPENTIN 300 MG CAPSULE PO SCH (10:07)
[2021-03-04] MEDS: MELOXICAM 7.5 MG TABLET PO SCH (10:07)
[2021-03-04] MEDS: FOLIC ACID 1 MG TABLET PO SCH (10:07)
[2021-03-04] MEDS: MAGNESIUM HYDROXIDE 30 ML ORAL.SUSP PO SCH (10:08)
[2021-03-04] MEDS: DOCUSATE SODIUM 100 MG CAPSULE PO SCH (10:08)
[2021-03-04] MEDS: DEUTETRABENAZINE 12 MG PO SCH (10:18)
--- NOTE | 2021-03-04 12:18 | Discharge Summary ---
Discharge Provider Provider Patient information: Note initiated : 03/04/21 at 12:05 pm Service Date, if different from initiated Date: [] Patient: Jose Manuel Perkins 55 y/o M admitted on 03/01/21 for dislocated 5th toe. Chief Complaint: [left fifth toe fracture and dislocation; hypernatremia] Date of admission: 03/01/21 20:19 Discharge date: 03/04/21 Primary care physician: Unknown Unknown Consults: 03/01/21 Consult to Physician [CONS] Stat Comment: Consulting Provider: Chauncey Hickey Reason For Exam: Physician to Consult Consult to Physician [CONS] Stat Comment: Consulting Provider: Dario Stark Reason For Exam: Physician to Consult 03/01/21 14:50 Consult to Physician [CONS] Stat Comment: Consulting Provider: Chauncey Hickey Reason For Exam: Physician to Consult 03/01/21 20:28 Consult to Physician [CONS] Stat Comment: hypernatremia Consulting Provider: Abeba Melo Reason For Exam: Physician to Consult Discharge Meds Discharge Medications Home Medications Adults Multivitamin 1 tab PO QAM 03/01/21 [History Confirmed 03/01/21 Last Taken 03/01/21 07:00 1 tab] Fleet Enema 118 ml CO DAILY PRN 03/01/21 [History Confirmed 03/01/21 Last Taken Unknown] acetaminophen 500 mg PO Q6H PRN 03/01/21 [History Confirmed 03/01/21 Last Taken 03/01/21 11:51 500 mg] amantadine HCl 100 mg PO TID 03/01/21 [History Confirmed 03/01/21 Last Taken 03/01/21 07:00 100 mg] benzocaine 1 applic MUCOUS MEMBRANE QID PRN 03/01/21 [History Confirmed 03/01/21 Last Taken Unknown] bisacodyl 10 mg CO QDAY PRN 03/01/21 [History Confirmed 03/01/21 Last Taken Unknown] cholecalciferol (vitamin D3) 125 mcg PO WEEKLY 03/01/21 [History Confirmed 03/01/21 Last Taken 02/23/21 07:00 5000 units] deutetrabenazine 24 mg PO BID 03/01/21 [History Confirmed 03/01/21 Last Taken 03/01/21 15:00 12 mg] folic acid 1 mg PO QAM 03/01/21 [History Confirmed 03/01/21 Last Taken 03/01/21 07:00 1 mg] gabapentin 300 mg PO TID 03/01/21 [History Confirmed 03/01/21 Last Taken 03/01/21 12:00 300 mg] loratadine [Allergy Relief (loratadine)] 10 mg PO QAM 03/01/21 [History Confirmed 03/01/21 Last Taken 03/01/21 07:00 10 mg] magnesium hydroxide [Milk of Magnesia] 15 ml PO BID 03/01/21 [History Confirmed 03/01/21 Last Taken 03/01/21 07:00 5 ml] melatonin 3 mg PO HS PRN 03/01/21 [History Confirmed 03/01/21 Last Taken 02/26/21 00:53 3 mg] meloxicam 15 mg PO QAM 03/01/21 [History Confirmed 03/01/21 Last Taken 03/01/21 07:00 15 mg] methocarbamol 750 mg PO TID 03/01/21 [History Confirmed 03/01/21 Last Taken 03/01/21 07:00 750 mg] oxycodone 5 mg PO QPM 03/01/21 [History Confirmed 03/01/21 Last Taken 02/28/21 21:00 5 mg] quetiapine 25 mg PO BID 03/01/21 [History Confirmed 03/01/21 Last Taken 03/01/21 07:00 25 mg] sertraline 50 mg PO QDAY 03/01/21 [History Confirmed 03/01/21 Last Taken 03/01/21 07:00 50 mg] thiamine HCl (vitamin B1) 100 mg PO QAM 03/01/21 [History Confirmed 03/01/21 Last Taken 03/01/21 07:00 100 mg] linezolid 600 mg PO BID #28 tab 03/04/21 [Rx Last Taken Unknown] oxycodone 5 mg PO HS PRN #14 tab 03/04/21 [Rx Last Taken Unknown] COURSE Hospital Course Hospital course: Wound culture of the left toe collected and it grew MRSA. Vanco mycin and Zosyn were initially started, and Zosyn was subsequently stopped. Wood Grinder Operator Dr. Hickey was consulted who instructed on wound care. He also recommended outpatient elective surgery for the fracture/dislocation. Narcotics were provided for symptoms relief. In addition, he was also found to have hypernatremia with sodium level 150 at admission. D5 1/2NS@50cc/hr was started and his sodium level eventually normalized on 03/04/21. Of note, he sustained a fall on 03/02/21. He did not sustained any injury from that accident; 1:1 sitter was implemented since that accident. By 03/04/21 he had reached clinical stability, and the decision was made to discharge him back to SNF with Rx Linezolid 600mg PO BID for 2 week given. Follow up appointment with Dr. Hickey piano teacher and Dr. Connolly ID were set up for him. All questions were answered prior to patient being physically discharged. Discharge diagnosis: Left fifth toe open fracture, PIP joint dislocation. Time Spent with Patient Time attestation: Total time spent providing and/or coordinating discharge services: Time spent: Less than 30 minutes EXAM Constitutional Vitals: Temp Pulse Resp BP Pulse Ox 36.8 C 71 18 136/81 93 03/04/21 11:52 03/04/21 11:52 03/04/21 11:52 03/04/21 11:52 03/04/21 11:52 General appearance: cooperative and no acute distress Head Head exam: Present atraumatic and normocephalic Eye Eye exam: Present EOMI and PERRL ENT ENT exam: Present mucous membranes moist, normal exam and normal external ear exam Neck Neck exam: Present normal inspection; Absent lymphadenopathy, tenderness and thyromegaly Respiratory Respiratory exam: Absent accessory muscle use, respiratory distress and wheezes Cardiovascular Cardiovascular exam: Present normal rate and rhythm; Absent JVD GI/Abdominal GI/Abdominal exam: Present normal bowel sounds and soft; Absent organomegaly and tenderness Rectal Rectal exam: Present deferred Extremities Exam Extremities exam: Present full ROM and normal capillary refill; Absent normal inspection and tenderness Additional comments: Left fifth toe wrapped in wound dressing. Multiple bruises on multiple toes. Neurological Exam Neurological exam: Present alert, CN II-XII intact and oriented X3; Absent motor sensory deficit Psychiatric Psychiatric exam: Present normal affect and normal mood; Absent anxious and depressed Skin Skin exam: Present dry and intact Discharge Data Data Completed and Pending Labs on day of discharge: Labs from last 24 hours 03/04/21 03/04/21 03/04/21 08:01 08:01 05:15 WBC 12.6 H RBC 3.96 L Hgb 11.8 L Hct 39.0 L MCV 98.5 MCH 29.8 MCHC 30.3 L RDW 13.9 Plt Count 276 MPV 11.5 H Neut % (Auto) 74.3 Lymph % (Auto) 9.7 L [place] % (Auto) 8.5 Eos % (Auto) 6.8 Baso % (Auto) 0.7 Lymph # (Auto) 1.22 L [place] # (Auto) 1.07 H Eos # (Auto) 0.86 H Baso # (Auto) 0.09 Absolute Neutrophils 9.37 H Differential Comment Sodium 140 Potassium 3.5 Chloride 108 Carbon Dioxide 23 Anion Gap 9.0 BUN 6 Creatinine 0.6 L GFR Calculation 113 Glucose 77 Calcium 8.5 L Total Bilirubin 0.5 AST 19 ALT 11 Alkaline Phosphatase 88 Total Protein 5.9 Albumin 2.6 L Globulin 3.3 Albumin/Globulin Ratio 0.8 L Vancomycin Trough 13.4 03/04/21 05:15 WBC TNP RBC TNP Hgb TNP Hct TNP MCV TNP MCH TNP MCHC TNP RDW TNP Plt Count TNP MPV TNP Neut % (Auto) TNP Lymph % (Auto) TNP [place] % (Auto) TNP Eos % (Auto) TNP Baso % (Auto) TNP Lymph # (Auto) TNP [place] # (Auto) TNP Eos # (Auto) TNP Baso # (Auto) TNP Absolute Neutrophils TNP Differential Comment TNP Sodium Potassium Chloride Carbon Dioxide Anion Gap BUN Creatinine GFR Calculation Glucose Calcium Total Bilirubin AST ALT Alkaline Phosphatase Total Protein Albumin Globulin Albumin/Globulin Ratio Vancomycin Trough Preliminary micro results at discharge 03/01/21 15:02 Blood Culture - Preliminary Blood 03/01/21 14:48 Blood Culture - Preliminary Blood Discharge Plan Patient/Caregiver Discharge Instructions Activity: as per physical therapy and non-weight bearing Diet: Regular Diet Instructions: How to Prevent Pressure Injuries (DC) Activity Restrictions/Additional Instructions: Discharge to SNF 2 week Linezolid therapy. 2 week follow up appointment with infectious disease Dr. Connolly. Need follow up appointment with Dr. Hickey for surgery for left 5th toe fracture/dislocation. Wound care instruction: Exu fiber dressing change daily. This discharge packet is provided to you to help keep you informed about your care. We want to ensure you get everything you need when you go home. You will also be receiving a call from us in a few days to follow up with you and see how you are doing since your discharge. This gives us a chance to listen to any concerns you maybe experiencing since you were discharged or any additional needs you may have, as well as providing us feedback on your care experience. We strive to always provide excellent care and thank you for your feedback and for choosing [facility]. Prescriptions: New linezolid 600 mg tablet 600 mg PO BID Qty: 28 RF: 0 oxycodone 5 mg Tablet 5 mg PO HS PRN (Reason: Pain) Qty: 14 RF: 0 Continued acetaminophen 500 mg Tablet 500 mg PO Q6H PRN (Reason: Pain) RF: 0 amantadine HCl 100 mg Tablet 100 mg PO TID RF: 0 quetiapine 25 mg Tablet 25 mg PO BID RF: 0 meloxicam 15 mg Tablet 15 mg PO QAM RF: 0 methocarbamol 750 mg Tablet 750 mg PO TID RF: 0 folic acid 1 mg Tablet 1 mg PO QAM RF: 0 loratadine [Allergy Relief (loratadine)] 10 mg Tablet 10 mg PO QAM RF: 0 oxycodone 5 mg Tablet 5 mg PO QPM RF: 0 gabapentin 300 mg Tablet 300 mg PO TID RF: 0 Adults Multivitamin 18 mg iron-400 mcg-25 mcg Tablet 1 tab PO QAM RF: 0 deutetrabenazine 12 mg Tablet 24 mg PO BID RF: 0 thiamine HCl (vitamin B1) 100 mg Tablet 100 mg PO QAM RF: 0 cholecalciferol (vitamin D3) 125 mcg (5,000 unit) Tablet 125 mcg PO WEEKLY RF: 0 magnesium hydroxide [Milk of Magnesia] 400 mg/5 mL Suspension 15 ml PO BID RF: 0 bisacodyl 10 mg Suppository 10 mg CO QDAY PRN (Reason: Constipation) RF: 0 benzocaine 20 % Gel 1 applic MUCOUS MEMBRANE QID PRN (Reason: Mouth Pain) RF: 0 sertraline 50 mg Tablet 50 mg PO QDAY RF: 0 melatonin 3 mg Tablet 3 mg PO HS PRN (Reason: Insomnia) RF: 0 Fleet Enema 19-7 gram/118 mL Enema 118 ml CO DAILY PRN (Reason: Constipation) RF: 0 Discontinued magnesium hydroxide [Milk of Magnesia] 400 mg/5 mL Suspension 30 ml PO Q72H PRN (Reason: Constipation) RF: 0 Other Ambulatory Orders: Wound Care Instructions (CONT) Location: None Selected Ordered By: Chauncey Hickey OT Discharge Order (Routine) Location: None Selected Ordered By: Dario Stark Physical Therapy at Discharge - General (Routine) Location: None Selected Ordered By: Dario Stark Follow Up Plan Follow up with: Unknown,Unknown [Primary Care Provider] - Patient Disposition: [facility] Prognosis: Good Rehab Potential: Good Overall status at discharge: patient is back to baseline Discharge Orders: Discharge Order (Routine); Ordered 03/04/21 Ordered By: Dario Stark QUALITY VTE Deep Vein Thrombosis/Pulmonary Embolism Present on Admission: No
[2021-03-04] MEDS ORDERED: LINEZOLID 600 MG TABLET PO ONE (12:31)
[2021-03-04] MEDS: DEXTROSE 5%-1/2NS 1,000 ML IV SCH (12:58)
[2021-03-04] MEDS: VANCOMYCIN 1,000 MG in 0.9 % SODIUM CHLORIDE 250 ML IV SCH (12:58)
[2021-03-04] MEDS: AMANTADINE HCL 100 MG CAPSULE PO SCH (13:20)
[2021-03-04] MEDS: MUPIROCIN OINT 2% 22GM NARES SCH (13:20)
--- NOTE | 2021-04-08 09:19 | Orthopedic Consult Note ---
HPI Data of Consult Primary Care Provider: Unknown Unknown Consult Narrative Patient Information: Note initiated : 04/08/21 at 9:16 am Service Date, if different from initiated Date: [] Patient: Jose Manuel Perkins 55 y/o M admitted on 03/01/21 for dislocated 5th toe. Chief Complaint: [dislocated 5th toe] Patient recently hit left foot toe on a piece of furniture. It has since been shifted laterally and has an open wound on the fourth fifth toe interspace area. Patient does have chronic stability issues secondary to [place]'s chorea. cc:: CC: Dario Stark MD [facility] All Active Problems (Updated 03/01/21 @ 19:20 by Dario Stark MD) Macrocytic anemia (Acute) [place]'s chorea (Acute) Open fracture dislocation of interphalangeal joint of toe of left foot (Acute) Acute hypernatremia (Acute) MEDS/ALLERGIES Home Medications and Allergies Home Medications Medication Instructions Recorded Confirmed Type Adults Multivitamin 1 tab PO QAM 03/01/21 03/01/21 History Fleet Enema 118 ml [place] DAILY PRN 03/01/21 03/01/21 History acetaminophen 500 mg PO Q6H PRN 03/01/21 03/01/21 History amantadine HCl 100 mg PO TID 03/01/21 03/01/21 History benzocaine 1 applic MUCOUS MEMBRANE QID PRN 03/01/21 03/01/21 History bisacodyl 10 mg [place] QDAY PRN 03/01/21 03/01/21 History cholecalciferol (vitamin D3) 125 mcg PO WEEKLY 03/01/21 03/01/21 History deutetrabenazine 24 mg PO BID 03/01/21 03/01/21 History folic acid 1 mg PO QAM 03/01/21 03/01/21 History gabapentin 300 mg PO TID 03/01/21 03/01/21 History loratadine [Allergy Relief 10 mg PO QAM 03/01/21 03/01/21 History (loratadine)] magnesium hydroxide [Milk of 15 ml PO BID 03/01/21 03/01/21 History Magnesia] melatonin 3 mg PO HS PRN 03/01/21 03/01/21 History meloxicam 15 mg PO QAM 03/01/21 03/01/21 History methocarbamol 750 mg PO TID 03/01/21 03/01/21 History oxycodone 5 mg PO QPM 03/01/21 03/01/21 History quetiapine 25 mg PO BID 03/01/21 03/01/21 History sertraline 50 mg PO QDAY 03/01/21 03/01/21 History thiamine HCl (vitamin B1) 100 mg PO QAM 03/01/21 03/01/21 History linezolid 600 mg PO BID #28 tab 03/04/21 Rx oxycodone 5 mg PO HS PRN #14 tab 03/04/21 Rx Allergies Allergy/AdvReac Type Severity Reaction Status Date / Time No Known Drug Allergies Allergy Verified 03/01/21 13:42 Physical Examination Ankle & Foot left: Foot appearance: other (Left fifth toe lateral dislocation with open fissure. Fissuring probes deep to the interspace between the fourth and fifth digit) A/P Time Spent With Patient Time: Total time spent is greater than 50% in coordination of care (as documented) at patient's floor/unit and/or counseling patient: Iodine wet-to-dry in fissure site Splinting fourth the fifth toe to reduce dislocation Follow-up in clinic as soon as able with discharge from emergency department
== END 2021-03-04 14:35 | DRG 563 ==
LOC: ED 13:38 → MEDSUR 20:19
PROVIDERS: ADMIT Internal Medicine; ATTEND Internal Medicine